=== PATIENT | female | born 1945 | race Caucasian/White ===

== ENCOUNTER → 2019-12-03 | Outpatient (CLI) | payer MEDICARE | END | disposition home or self-care (01) | LOC: CFH 14:22 | PROVIDERS: ATTEND Nurse Practitioner | DX: N85.8 Other specified noninflammatory disorders of uterus (principal); M51.37 Other intervertebral disc degeneration, lumbosacral region; R60.1 Generalized edema | CPT/HCPCS: 74176 ==

== ENCOUNTER 2020-01-08 12:33 | Outpatient (CLI) | payer MEDICARE ==
[2020-02-25] MEDS ORDERED: CALC1CAP8 PO (09:53)
[2020-02-25] MEDS ORDERED: ALBU1.25 NEB (09:53)
[2020-02-25] MEDS ORDERED: ASPI81TA45 PO (09:53)
== END 2020-01-08 23:59 | disposition home or self-care (01) ==
LOC: CFH 12:33
PROVIDERS: ATTEND Family Medicine
DX: Z12.31 Encounter for screening mammogram for malignant neoplasm of breast (principal)
CPT/HCPCS: 77063; 77067

== ENCOUNTER → 2020-02-25 | Outpatient (CLI) | payer MEDICARE ==
[~2020-02-25] MED LIST: ALBU1.25 NEB; ASPI81TA45 PO; CALC1CAP8 PO
[2020-02-25 10:38] LABS: BASOPHILS # (AUTO) 0.04 x10^3/uL (0-0.1); BASOPHILS % (AUTO) 1 % (0-1); EOSINOPHILS # (AUTO) 0.33 x10^3/uL (0-0.4); EOSINOPHILS % (AUTO) 5 % (1-7); LYMPHOCYTES # (AUTO) 1.75 x10^3/uL (1-3.4); LYMPHOCYTES % (AUTO) 28 % (22-44); MD NO; MEAN CORPUSCULAR HEMOGLOBIN 32.2 pg (27.0-34.8); MEAN CORPUSCULAR VOLUME 94.8 fL (80-100); MEAN PLATELET VOLUME 7.6 fL (7.4-10.4); MONOCYTES # (AUTO) 0.54 x10^3/uL (0.2-0.8); MONOCYTES % (AUTO) 9 % (2-9); NEUTROPHILS # (AUTO) 3.62 x10^3/uL (1.8-6.8); NEUTROPHILS % (AUTO) 58 % (42-75); PLATELET COUNT 380 x10^3/uL (130-400); RED CELL DISTRIBUTION WIDTH 14.1 % (9.6-15.2)
[2020-02-25 10:44] LABS: ALBUMIN 3.8 g/dL (3.4-5.0); ANION GAP 7 mmol/L (5-15); CALCIUM 9.4 mg/dL (8.5-10.1); CHLORIDE 107 mmol/L (98-107); INTERNATIONAL NORMALIZED RATIO 0.91 (0.93-1.1); PROTHROMBIN TIME 9.6 Seconds (9.6-11.5)
[2020-02-25 10:48] LABS: ALANINE AMINOTRANSFERASE 34 U/L (12-78); ALKALINE PHOSPHATASE 67 U/L (45-117); BILIRUBIN,TOTAL 0.6 mg/dL (0.2-1.0); CREATININE 0.98 mg/dL (0.55-1.02); TOTAL PROTEIN 7.6 g/dL (6.4-8.2)
== END | disposition home or self-care (01) ==
LOC: STAR 09:10
PROVIDERS: ATTEND Obstetrics & Gynecology
DX: Z01.818 Encounter for other preprocedural examination (principal); I44.0 Atrioventricular block, first degree; N85.00 Endometrial hyperplasia, unspecified; N83.299 Other ovarian cyst, unspecified side; R93.89 Abnormal findings on diagnostic imaging of other specified body structures
CPT/HCPCS: 36415; 71046; 80053; 85025; 85610; 85730; 93005; U0001

== ENCOUNTER 2020-02-29 05:38 | Day surgery (SDC) | payer MEDICARE ==
[~2020-02-29] VITALS: Ht 157.5 cm; Wt 66.0 kg
[2020-02-29] MEDS ORDERED: LACTATED RINGERS 1,000 ML IV SCH (06:42)
[2020-02-29] MEDS ORDERED: HEPARIN 1,000 UNITS/ML, 10ML ONE (06:56)
[2020-02-29] MEDS ORDERED: BUPIVACAINE/PF-EPI 0.25% 1:200K ONE (06:56)
[2020-02-29] MEDS ORDERED: CEFOTETAN PMX 2GM/50ML 50 ML IV ONE (07:00)
[2020-02-29] MEDS ORDERED: LIDOCAINE-MPF 1%, 2ML INFIL ONE (07:00)
[2020-02-29] MEDS ORDERED: ACETAMINOPHEN 500 MG TABLET PO STA (07:02)
[2020-02-29] MEDS ORDERED: GABAPENTIN 300 MG CAPSULE PO STA (07:02)
[2020-02-29] MEDS ORDERED: FENTANYL PF 250 MCG/5ML ONE (07:05)
[2020-02-29] MEDS ORDERED: ROCURONIUM 10MG/ML,5ML ONE ×2 (07:09→07:48)
[2020-02-29] MEDS ORDERED: CEFAZOLIN 1,000 MG ONE (07:09)
[2020-02-29] MEDS ORDERED: ONDANSETRON 2MG/ML, 2ML ONE (07:09)
[2020-02-29] MEDS ORDERED: PROPOFOL 10 MG/ML, 20ML ONE (07:09)
[2020-02-29] MEDS ORDERED: DEXAMETHASONE 4 MG/ML, 1ML ONE (07:09)
[2020-02-29] MEDS ORDERED: SUCCINYLCHOLINE 20 MG/ML, 10ML ONE (07:09)
[2020-02-29] MEDS ORDERED: SODIUM CHLORIDE 0.9% PF 10ML ONE (07:09)
[2020-02-29] MEDS ORDERED: LABETALOL 5MG/ML, 20ML IV PRN (07:30)
[2020-02-29] MEDS ORDERED: OXYcodone 5 MG/5 ML ORAL.SOL UDC PO PRN (07:30)
[2020-02-29] MEDS ORDERED: EPHEDRINE 50 MG/ML, 1ML IVPush PRN (07:30)
[2020-02-29] MEDS ORDERED: ONDANSETRON 2MG/ML, 2ML IV PRN (07:30)
[2020-02-29] MEDS ORDERED: MEPERIDINE/PF 25MG/ML,1ML IVPush PRN (07:30)
[2020-02-29] MEDS ORDERED: FENTANYL PF 100 MCG/2ML IV PRN (07:30)
[2020-02-29] MEDS ORDERED: PROMETHAZINE 25 MG/ML, 1ML IV PRN (07:30)
[2020-02-29] MEDS ORDERED: HYDROmorphone 2 MG/ML, 1ML IVPush PRN (07:30)
[2020-02-29] MEDS ORDERED: hydrALAzine 20 MG/ML, 1ML IV PRN (07:30)
[2020-02-29] MEDS ORDERED: GLYCOPYRROLATE 0.2MG/1ML, 5ML ONE (07:33)
[2020-02-29] MEDS ORDERED: CHLORHEXIDINE 15 ML UDC ONE (07:36)
[2020-02-29] MEDS ORDERED: KETOROLAC 30 MG/1 ML ONE (07:48)
[2020-02-29] MEDS ORDERED: LIDOCAINE-MPF 2% ,5ML ONE (07:48)
[2020-02-29] MEDS ORDERED: SUGAMMADEX 200 MG/2 ML IVPush ONE (09:57)
[2020-02-29] MEDS ORDERED: FENTANYL PF 100 MCG/2ML ONE (10:22)
== END 2020-02-29 15:10 | disposition home or self-care (01) ==
LOC: OUT 05:38
PROVIDERS: ATTEND Obstetrics & Gynecology
DX: C56.2 Malignant neoplasm of left ovary (principal); N99.71 Accidental puncture and laceration of a genitourinary system organ or structure during a genitourinary system procedure; C56.1 Malignant neoplasm of right ovary; N84.0 Polyp of corpus uteri; N13.5 Crossing vessel and stricture of ureter without hydronephrosis; N73.6 Female pelvic peritoneal adhesions (postinfective); J45.909 Unspecified asthma, uncomplicated; M15.9 Polyosteoarthritis, unspecified; E89.0 Postprocedural hypothyroidism; Z79.82 Long term (current) use of aspirin; Z79.899 Other long term (current) drug therapy; Z87.891 Personal history of nicotine dependence; Z90.49 Acquired absence of other specified parts of digestive tract; Z98.890 Other specified postprocedural states; Z82.49 Family history of ischemic heart disease and other diseases of the circulatory system
CPT/HCPCS: 36415; 58552; 74018; 86850; 86900; 86923; 88305; 88307; 88329; J0330; J0690; J1100; J1885; J2405; J2704; J3010; J3490; J7120; J1644

== ENCOUNTER → 2021-04-10 | Outpatient (CLI) | payer MEDICARE | END | disposition home or self-care (01) | LOC: CFH 12:16 | PROVIDERS: ATTEND Family Medicine | DX: Z12.31 Encounter for screening mammogram for malignant neoplasm of breast (principal) | CPT/HCPCS: 77063; 77067 ==